=== PATIENT | male | born 1990 | race Caucasian/White ===

== ENCOUNTER 2024-03-04 21:57 | Emergency (ER) | payer OTHER, SELFPAY ==
[2024-03-04 22:18] VITALS: BP 138/72
[2024-03-04 23:37] VITALS: BMI 38.0
[2024-03-04] MEDS: DECADRON 10 MG IV (23:47)
[2024-03-04] MEDS: BENADRYL 25 MG IV (23:47)
[2024-03-04] MEDS: PEPCID 20 MG IV (23:47)
[2024-03-05 00:06] VITALS: BP 128/71
--- NOTE | 2024-03-05 00:08 | ED.GENMED ---
History of Present Illness
General
Chief Complaint: Skin Problem
Source: patient
Exam Limitations: none
Time Seen by Provider: 03/04/24 23:06
Nursing documentation reviewed up to this point in time: agreed with
History of Present Illness
History of Present Illness:
Patient presents to ED secondary to itching rash, which has been ongoing for the past 2 months. Patient states that his initial symptoms started in his thigh, which now has progressed diffusely to all of his body. Patient was evaluated by his
vehicle body builder last week and was prescribed taper dose of prednisone, which improved his symptoms initially. However, over the past 24 hours, as he has taken his last dose of prednisone, his itching sensation has returned with rash. Denies fever or
chills. Denies nausea or vomiting. Denies trauma. Denies previous history of similar symptoms. Patient does not take any medications daily. Patient was told by his vehicle body builder that his reactions are secondary to allergic dermatitis.
Past History
Past History
ED Past Medical History: Psychiatric (ADD)
ED Past Surgical History: None
Social History
Tobacco: Non-smoker
Personal: Single
Living: with family
Employment: Student
Review of Systems
Review of Systems
Allergies reviewed?: Yes
All Other Systems: ROS reviewed and negative except as documented in HPI and ROS
Constitutional: Reports no symptoms
Respiratory: Reports no symptoms; Denies trouble breathing
Cardiac: Reports no symptoms
ABD/GI: Reports no symptoms; Denies nausea or vomiting
Musculoskeletal: Reports no symptoms
Skin: Reports itching and rash
Neurological: Reports no symptoms
Phy Exam
Physical Exam
Physical Exam:
Physical Exam
General: mild distress, not acutely ill. afebrile
Head: nc/at. eomi
Neck: supple. no meningeal signs. normal posterior pharynx
Heart: s1/s2 regular rate and rhythm, no murmur. equal radial pulses.
Lungs: no acute respiratory distress. clear bilaterally
Abdomen: normal bowel sounds. not tender.
Neuro: alert and oriented. no focal neurological deficits
Skin: diffuse erythematous, macular rash noted, sparing face.
Psychiatric: well kept. interactive and cooperative
Extremities: no edema. no calf tenderness.
Course
Orders/Labs/Results
Orders:
Orders
03/04/24 23:25
Dexamethasone Sod Phosphate [Decadron] 10 mg IV NOW STA
Diphenhydramine [Benadryl] 25 mg IV NOW STA
Famotidine [Pepcid] 20 mg IV NOW STA
03/05/24 01:01
HydrOXYZINE [Atarax] 25 mg PO NOW STA
03/05/24 01:32
Rapid Strep Group A Urgent
ROWAN Source: Throat/Pharynx
Specimen Description:
Date Specimen was Collected: 03/05/24
Time Specimen was Collected: 01:28
Vital Signs
Initial and Last Documented VS:
Initial Vital Signs
Temp Pulse Resp BP Pulse Ox
98.6 F 90 18 138/72 97
03/04/24 22:18 03/04/24 22:18 03/04/24 22:18 03/04/24 22:18 03/04/24 22:18
Last Documented Vital Signs
Temp Pulse Resp BP Pulse Ox
98.6 F 71 18 128/71 97
03/04/24 22:18 03/05/24 00:06 03/05/24 00:06 03/05/24 00:06 03/05/24 00:06
MDM/Problems Addressed
MDM/Problems Addressed:
Patient with mild improvement symptoms after treatment. Patient otherwise remains afebrile, hemodynamic stable, and nontoxic-appearing. Patient will be treated with prednisone short-term, along with recommendation to follow-up with his
vehicle body builder next week for reevaluation.
*Critical Care Note
Total Time (30-74mins, 75-104mins- exclusive of procedures): Not Applicable
ED Attending Note
-
Portions of this chart may have been created with voice recognition software.� Occasional wrong word or��sound alike� substitutions may have occurred due to the inherent limitations of voice recognition software.
Discharge Plan
Departure
Patient Disposition: Home (Routine Discharge)
Date of Disposition: 03/05/24
Time of Disposition: 01:08
Patient with high blood pressure during this ER visit?: Yes
Condition: Good
Discharge Problem:
Rash
Instructions: Skin Rash (DC)
Prescriptions:
New
prednisone 50 mg tablet
50 mg PO DAILY Qty: 4 0RF
No Action
dextroamphetamine-amphetamine [Adderall XR] 10 MG capsule,extended release 24hr
30 mg PO DAILY
ibuprofen 600 MG tablet
600 mg PO Q6HPRN PRN (Reason: pain. Take with food) Qty: 30 0RF
Referrals:
NONE,* [Family Provider] -
Activity Restrictions/Additional Instructions:
As discussed, please follow-up with your vehicle body builder for reevaluation next week. Your prescription has been sent electronically to [facility] pharmacy in [place].
Interventions
Interventions:
*Risk Screen - Suicide Last Done: 03/04/24 22:18
*General Assessment Last Done: 03/04/24 22:18
*Neglect/Abuse Screening Last Done: 03/04/24 22:18
*Nursing Disposition Last Done: 03/05/24 01:33
ED-Skin Assessment Last Done: 03/04/24 23:38
Discharge Date and Time
Discharge Date/Time: 03/05/24 01:33
Print Language: CZECH
[2024-03-05] MEDS: ATARAX 25 MG PO (01:28)
== END 2024-03-05 01:33 | disposition home or self-care (01) ==
LOC: EMR 21:57
PROVIDERS: EMERGENCY PHYSICIAN Emergency Medicine
DX: R21 Rash and other nonspecific skin eruption (principal); L29.9 Pruritus, unspecified; R03.0 Elevated blood-pressure reading, without diagnosis of hypertension; F90.9 Attention-deficit hyperactivity disorder, unspecified type
CPT/HCPCS: 99284; 96374; 96375 ×2; 87070; 87880